=== PATIENT | female | born 1930 | race Caucasian/White ===

== ENCOUNTER 2017-01-13 16:24 | Emergency (ER) | payer MEDICARE, BC ==
--- NOTE | ~2017-01-13 | CR71 ---
[facility]. [facility] A Service of [facility] RADIOLOGY TEXT RESULTS PATIENT: TAYO FARR LOCATION: SED : 32 UNIT #: [id number] AGE: [address]: Kandis Choi SEX: F ORDER DR: [id number] [address] [address] [id number] MR#: [id number] Acc #: [id number] NAME: TAYO FARR : 1930 SEX: F STUDY DATE/TIME: 01/13/2017 16:35 UNIT: SED ROOM: STUDY DESCRIPTION: CR Chest Single View Attending Physician: Kandis Choi Pa-C Ordering Physician: Kandis Choi Pa-C Primary Care Physician: Jeronimo Bennett M.D. MEDICAL IMAGING REPORT This report is preliminary unless electronic signature is present. EXAM Portable chest HISTORY 86-year-old female with chest pain onset yesterday. History of breast cancer. Prior lumpectomy. Patient with severe kyphosis. COMPARISON 10/09/2015 FINDINGS Portable view of the chest demonstrates deformity of the thorax secondary to severe kyphosis. There is small amount of bibasilar atelectasis. No definite airspace disease or consolidation. No effusions. Mild cardiomegaly. Suspected middle mediastinal density suggests a hiatal hernia. Mild aortic atherosclerotic changes. No pneumothorax. Dictated by... Silverio Orellana M.D. THIS IS AN ELECTRONICALLY VERIFIED REPORT Silverio Orellana M.D. at 01/15/2017 4:36 PM BAKARI/damian TD: 01/13/2017 20:18 JOB #: [id number] MEDICAL IMAGING REPORT Page 1 of 1
--- NOTE | ~2017-01-13 | EKG ---
PATIENT: TAYO FARR UNIT #: [id number] Ventricular Rate: 86 BPM Atrial Rate: 86 BPM P-R Interval: 250 ms QRS Duration: 132 ms Q-T Interval: 412 ms QTC Calculation(Bezet): 493 ms P Peak: 61 degrees Calculated R Peak: -66 degrees Calculated T Peak: 86 degrees Diagnosis Line: Sinus rhythm with 1st degree A-V block Diagnosis Line: Left axis deviation Diagnosis Line: Left ventricular hypertrophy with QRS widening and Diagnosis Line: repolarization abnormality Diagnosis Line: Inferior infarct (cited on or before 10-OCT-2015) Diagnosis Line: Cannot rule out Anteroseptal infarct (cited on or Diagnosis Line: before 10-OCT-2015) Diagnosis Line: Abnormal ECG Diagnosis Line: When compared with ECG of 10-OCT-2015 11:04, Diagnosis Line: No significant change was found Diagnosis Line: Confirmed by JAMES FOY MD ([id number]) on 01/14/2017 Diagnosis Line: 5:51:51 PM INTERPRETING MD: DANII HARRIS
[~2017-01-13 16:24] MED LIST: ALBUTEROL MDI; ALBUTEROL MININEB NEB; AMARYL PO; AMARYL2 MG PO; AMLODIPINE PO; APRESOLINE PO; ASPIRIN81 M2 PO; ATACAND HCT 32/1 TAB PO; ATACAND32 MG PO; ATIVAN PO; BENTYL20 MG PO; BENZONATATE PO; BROMDAY1.7 ML OP; BYSTOLIC20 MG PO; CALCIUM CARBON600 M1 PO; CIPRO PO; CLONAZEPAM PO; CLONIDINE TOP; COREG PO; DESYREL50 MG PO; DOXYCYCLINE; DYAZIDE 37.5/251 CAP PO; FLOMAX0.4 MG PO; IRON1 TAB PO; K-DUR20 ME1 PO; KLONOPIN PO; KLONOPIN1 MG PO; LEXAPRO PO; MICRO-K PO; MIRALAX17 GM PO; MUCINEX DM TABL1 BOX PO; NEXIUM PO; NEXIUM20 MG PO; NORVASC PO; PRED FORTE1 ML OP; PREDNISONE PO; PROPANOLOL PO; TIMOPTIC5 ML OP; TOPROL XL PO; TRAVATAN5 ML OP; TYLOX 5/500 CAP1 CAP PO; VICODIN 5/500 T1 TAB PO; VITAMIN B12; VITAMIN D 22000 UNIT PO; VITAMIN D2; VITAMIN D2000 UNI1 PO; ZITHROMAX PO; [UNRECOGNIZED DRUG - OTHER] PO
[2017-01-13] MEDS ORDERED: COREG6.25 M1 (16:36)
[2017-01-13] MEDS ORDERED: KLONOPIN0.5 M3 (16:36)
[2017-01-13] MEDS ORDERED: AMARYL (16:36)
[2017-01-13] MEDS ORDERED: HCTZ (16:37)
[2017-01-13] MEDS ORDERED: TIMOPTIC 0.5% OP5 M1 (16:38)
[2017-01-13 16:52] LABS: BASOPHIL% 0.3 % (0-2.5); EOSINOPHIL# 0.3 X10e3 (0-0.7); EOSINOPHIL% 4.1 % (0.0-7.0); HEMATOCRIT 40.7 % (35.0-45.0); HEMOGLOBIN 13.5 gm/dL (12.0-16.0); LYMPHOCYTE# 2.5 X10e3 (1.0-3.5); LYMPHOCYTE% 31.8 % (17.0-45.0); MEAN CELL VOLUME 79.3 FL (83-96); MEAN CORPUSCULAR HEMOGLOBIN 26.3 PG (28-34); MEAN CORPUSCULAR HGB CONC 33.2 g/dL (30-36); MEAN PLATELET VOLUME 8.6 FL (6.5-11.5); MONOCYTE# 0.6 X10e3 (0-1.0); MONOCYTE% 7.9 % (3.0-12.0); NEUTROPHIL# 4.4 X10e3 (1.5-7.1); NEUTROPHIL% 55.9 % (40-75); PLATELET COUNT 219 X10e3 (140-420); RED BLOOD COUNT 5.13 X10e (3.90-5.30); RED CELL DISTRIBUTION WIDTH 16.8 % (11.0-15.5); WHITE BLOOD COUNT 7.8 X10e3 (4.0-10.5)
[2017-01-13 16:55] LABS: DIFF IND NO
[2017-01-13 17:05] LABS: POC - CKMB 2.1 ng/mL (0.0-7.9); POC - TROPONIN <0.05 ng/mL (<=0.05)
[2017-01-13 17:06] LABS: PROTHROMBIN TIME (PATIENT) 11.6 SECONDS (9.5-12.4)
[2017-01-13 17:13] LABS: ALBUMIN SERUM 3.8 g/dL (3.5-5.0); BILIRUBIN,TOTAL 0.5 mg/dL (0.2-2.0); CREATININE SERUM 0.7 mg/dL (0.6-1.4); POTASSIUM 3.3 mmol/L (3.5-5.1); PROTEIN TOTAL SERUM 7.3 g/dL (6.0-8.3)
[2017-01-13 17:14] LABS: PARTIAL THROMBOPLASTIN TIME 20.2 SECONDS (25.6-38.1)
== END 2017-01-13 18:28 | disposition left against medical advice (07) ==
LOC: SED 16:24
PROVIDERS: Physician Assistant
DX: R07.89 Other chest pain (principal); I10 Essential (primary) hypertension; E11.9 Type 2 diabetes mellitus without complications; Z90.49 Acquired absence of other specified parts of digestive tract; Z98.890 Other specified postprocedural states; Z88.8 Allergy status to other drugs, medicaments and biological substances
CPT/HCPCS: 71010; 80053; 82553; 84484; 85025; 85610; 85730; 86677; 99284